=== PATIENT | female | born 1960 | race Caucasian/White ===

== ENCOUNTER 2019-08-22 14:28 | Outpatient (CLI) | payer OTHER, SELFPAY ==
--- NOTE | ~2019-08-22 | MM_ITS ---
EXAMINATION: MM screening alice BI w tsering HISTORY: Screening mammogram TECHNIQUE: Craniocaudal and mediolateral oblique 3-D tomosynthesis images were obtained and synthetic 2-D images were generated. CAD analysis was submitted and interpreted. COMPARISON: No prior mammogram is available for comparison at this institution. BREAST PARENCHYMAL COMPOSITION: There are scattered areas of fibroglandular density. FINDINGS: The right breast is stable without evidence for malignancy. There is focal asymmetry superi mady in the left breast on MLO view. IMPRESSION: 1. Focal left breast asymmetry superiorly seen on MLO view. 2. Additional mammographic views and possible breast ultrasound are recommended. BI-RADS Category 0: Incomplete: Needs additional imaging evaluation. Reviewed, dictated and finalized at location A. 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 Focal left breast asymmetry superiorly seen on MLO view. 2. Additional mammographic views and possible breast ultrasound are recommended . BI-RADS Category 0: Incomplete: Needs additional imaging evaluation.
== END 2019-08-22 14:29 | disposition home or self-care (01) ==
LOC: ANHIMG 14:31
PROVIDERS: PCP Family Medicine; Visit Provider Obstetrics & Gynecology
DX: Z12.31 Encounter for screening mammogram for malignant neoplasm of breast (principal); R92.8 Other abnormal and inconclusive findings on diagnostic imaging of breast
CPT/HCPCS: 77063; 77067

== ENCOUNTER 2019-10-12 12:20 | Outpatient (CLI) | payer OTHER, SELFPAY ==
--- NOTE | ~2019-10-12 | MM_ITS ---
EXAMINATION: MM diagnostic mammo unilat LT HISTORY: Left breast asymmetry on screening mammogram TECHNIQUE: Additional 3-D tomosynthesis images of the left breast were performed and synthetic 2-D im ages were generated. CAD analysis was submitted and interpreted. COMPARISON: Prior mammograms dating back to 01/24/2013 FINDINGS: With spot compression, the asymmetry in the middle third of the upper outer quadrant of the left breast has a stable appearance when compared to multiple prior examinations. There is no suspic ious mass, calcification, or architectural distortion. IMPRESSION: 1. No mammographic evidence of malignancy. 2. Recommend routine screening mammography in one year. BI-RADS Category 2: Benign finding(s). Reviewed, dictated and finalized at location A.
== END 2019-10-12 12:21 | disposition home or self-care (01) ==
LOC: ANHIMG 12:22
PROVIDERS: PCP Family Medicine; Visit Provider Obstetrics & Gynecology
DX: R92.8 Other abnormal and inconclusive findings on diagnostic imaging of breast (principal)
CPT/HCPCS: 77065

== ENCOUNTER 2020-04-08 17:48 | Outpatient (CLI) | payer OTHER, SELFPAY ==
--- NOTE | ~2020-04-08 | XR_ITS ---
EXAMINATION: XR chest 2V EXAM DATE: 04/08/2020 18:08 INDICATION: Left-sided chest pain. TECHNIQUE: Frontal and lateral projections of the chest obtained and reviewed. Comparison is made to prior examination from Comparison is made to prior examination from 04/09/2004. . FINDINGS: There is moderate hyperinflation. The lungs are clear. There are no pleural effusions. Th e cardiomediastinal silhouette is within normal limits. There is no pneumothorax suspected. The bon es and soft tissues are unremarkable. IMPRESSION: 1. No acute cardiopulmonary findings. 2. Hyperinflation. Reviewed, dictated and finalized at location A.
== END 2020-04-08 17:49 | disposition home or self-care (01) ==
PROVIDERS: PCP Family Medicine; Visit Provider Physician Assistant
DX: R07.89 Other chest pain (principal)
CPT/HCPCS: 71046

== ENCOUNTER 2020-05-11 11:15 | Outpatient (CLI) | payer OTHER, SELFPAY ==
--- NOTE | ~2020-05-11 | CT_ITS ---
EXAMINATION: CT chest wo con EXAM DATE: 05/11/2020 11:53 INDICATION: R07.89 - Other chest pain . TECHNIQUE: Spiral CT of the chest without contrast. Axial, coronal and sagittal images were reviewe d. Coronal maximum intensity pixel images of chest reviewed. The dose-length product (DLP) for this examination was 134.08 mGy-cm. The exposure was tailored according to patient size (auto mA exposur e control), and iterative reconstruction (ASIR) was used as additional dose reduction technique. Ravi elation is made to chest x-ray 04/08/2020. FINDINGS: Several lung calcified granulomata. Mild to moderate hyperinflation. There are no pleural or pericardial effusions. Tracheobronchial tree is patent. There is no mediastinal, hilar or axi llary lymphadenopathy. There is no pneumothorax. Heart normal in size. No evidence of coronary arterial calcification. There is a right liver lobe cyst measuring 1.5 cm. There is thoracic spondy losis without osteoblastic or osteolytic lesions identified. IMPRESSION: 1. Mild to moderate hyperinflation. 2. Granulomata. Reviewed, dictated and finalized at location A. 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
== END 2020-05-11 11:16 | disposition home or self-care (01) ==
LOC: ANHIMG 11:16
PROVIDERS: PCP Family Medicine; Visit Provider Family Medicine
DX: R07.89 Other chest pain (principal); R91.8 Other nonspecific abnormal finding of lung field
CPT/HCPCS: 71250

== ENCOUNTER 2020-06-20 09:29 | Outpatient (CLI) | payer OTHER, SELFPAY ==
--- NOTE | 2020-06-24 12:39 | WPDPFTINT ---
PFT Interpretation Full pulmonary function testing 06/20/2020. 1. Flows and volumes both appear greater than predicted normal 2. Diffusing appears capacity appears normal. 3. Post-bronchodilator testing was not obtained given the normalcy of this testing. Impression -normal full PFTs. Bridger Pinto MD MSc FACP FCCP
== END 2020-06-20 09:30 | disposition home or self-care (01) ==
LOC: ANHPFT 09:30
PROVIDERS: PCP Family Medicine; Visit Provider Family Medicine
DX: R09.89 Other specified symptoms and signs involving the circulatory and respiratory systems (principal)
CPT/HCPCS: 94375; 94726; 94729

== ENCOUNTER 2020-09-27 14:43 | Outpatient (CLI) | payer OTHER, SELFPAY ==
--- NOTE | ~2020-09-27 | MM_ITS ---
EXAMINATION: MM screening [facility] BI w tsering HISTORY: Screening mammogram TECHNIQUE: Craniocaudal and mediolateral oblique 3-D tomosynthesis images were obtained and synthetic 2-D images were generated. CAD analysis was submitted and interpreted. COMPARISON: 10/12/2019, 08/22/2019, 08/19/2018, 07/23/2017, 06/25/2016 BREAST PARENCHYMAL COMPOSITION: There are scattered areas of fibroglandular density. FINDINGS: There is no evidence of suspicious mass, calcification, or architectural distortion to sugg est malignancy in either breast. There has been no suspicious interval change. IMPRESSION: 1. No mammographic evidence of malignancy. 2. Recommend routine screening mammography in one year. BI-RADS Category 1: Negative Reviewed, dictated and finalized at location A.
== END 2020-09-27 14:44 | disposition home or self-care (01) ==
LOC: ANHIMG 14:45
PROVIDERS: PCP Family Medicine; Visit Provider Obstetrics & Gynecology
DX: Z12.31 Encounter for screening mammogram for malignant neoplasm of breast (principal)
CPT/HCPCS: 77063; 77067

== ENCOUNTER 2021-04-10 10:15 | Outpatient (RCR) | payer OTHER, SELFPAY ==
--- NOTE | 2021-01-24 12:51 | PTOPEVAL ---
Thank you for referring Dallin Hurtado to [facility].? The patient is scheduled to be seen for therapy?1-2 x/week for 5 weeks. Please review, sign, date and return this plan of care RAUL. I agree with and certify that the following plan of care is medically necessary. 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 she does have to lift the kids for treatment or leans forward to preform treatment. Subjective Information she has received chiropractor Query Text:As Reported By Patient/ and massage treatment for her Family neck. The massage does improve her tightness and pain. She was significantly limited with neck motion, but has improved recently. She has been limited by prolonged forward head position with reading. She is proping the object up with pillows with reading. Denies any numbness or tingling into UE's. [place] from scapular region to post head region. She has been having a progression into her back with pain. Pain Assessment Lower Back Reported Pain Level 5 Pain Description Aching,Tightness Pain Frequency Acute Lowest Pain Intensity 5 Greatest Pain Intensity 5 Pain Aggravating Factors Bending,Prolonged Position Posterior Neck Reported Pain Level 5 Pain Description Aching,Shooting,Tightness Pain Frequency Acute Lowest Pain Intensity 5 Greatest Pain Intensity 6 Pain Aggravating Factors Sitting,Other Pain Aggravating Factors Other Pain Aggravating Factors head movement Cervical and Lumbar ROM Cervical ROM Cervical Flexion (0-60) 70:Active in Degrees Cervical Extension (0-70) 50:Active in Degrees Cervical Lateral Flexion Right (0-50) 30:Active in Degrees Cervical Lateral Flexion Left (0-50) 30:Active in Degrees Cervical Rotation Right (0-90) 55:Active in Degrees Cervical Rotation Left (
--- NOTE | 2021-02-27 14:34 | PTOPEVAL ---
Physical therapy progress note Thank you for referring Dallin Hurtado to [facility].? Pt has attended 9 therapy visits to address neck pain. She demonstrates improved neck motion, strength, and pain with daily task. She has achieved 6 of her goals at this time. The patient is scheduled to be seen for therapy? 1 x/week for 4 weeks. Please review, sign, date and return this plan of care RAUL. I agree with and certify that the following plan of care is medically necessary. 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 She does have to lift the kids for treatment or leans forward to preform treatment. She has received chiropractor treatment for years to maintain neck and massage treatment for her neck for 2-3 treatments before starting PT. Subjective Information She reports improved neck and Query Text:As Reported By Patient/ back pain. She does not feel Family the pain stops her it is just always uncomfortable. She is more aware of her posture. She does report improved neck motion. She has improved head position with use of pillows for reading, but not having increased pain. Pain Assessment Pain Scale Used Numeric (1 - 10) Self Report Pain Assessment Lower Back Reported Pain Level 3 Lowest Pain Intensity 2 Greatest Pain Intensity 5 Cervical and Lumbar ROM Cervical ROM Cervical Flexion (0-60) 70:Active in Degrees Cervical Extension (0-70) 65:Active in Degrees Cervical Lateral Flexion Right (0-50) 38:Active in Degrees Cervical Lateral Flexion Left (0-50) 38:Active in Degrees Cervical Rotation Right (0-90) 58:Active in Degrees Cervical Rotation Left (0-90) 58Active in Degrees Cervical ROM Comments pain with ext and rotation Cervical and Lumbar Muscle Testing Cervical Muscle Testing Cervical Flexion 5 Normal Cervical Extension 5 Normal Cervical Lateral Flexion Right 5 Normal Cervical Lateral Flexion Left 5 Normal Deep Cervical Flexion deep neck nods for 10 sec but
--- NOTE | 2021-04-14 07:33 | PCPTNOTE ---
Admitting Provider: Attending Provider: PHYSICIAN NOT ON STAFF Patient:Dallin Hurtado Date of :1960 Physical Therapy Discharge Summary Patient has received 14 therapy visits since 01/24/21 to address neck pain and limitations. As a result of skilled therapy services she demonstrates improved pain, neck motion, muscle tension and tolerance with daily task. She has been instructed in a HEP and demonstrates indep. She has reached maximal potential with skilled therapy services at this time. The goals have been partially met. Thank you for referring this patient to [facility]. Please review, sign, date and return this discharge summary RAUL. I have been updated about the patient's current status and I agree with discharge from the above service at this time. Referring Physician Date
== END 2021-04-14 08:14 | disposition home or self-care (01) ==
LOC: ANHPT 10:15
PROVIDERS: PCP Family Medicine
DX: M50.30 Other cervical disc degeneration, unspecified cervical region (principal)
CPT/HCPCS: 97014; 97110; 97140; 97162; G0283

== ENCOUNTER 2021-10-24 08:00 | Outpatient (CLI) | payer OTHER, SELFPAY ==
--- NOTE | ~2021-10-24 | MM_ITS ---
EXAMINATION: MM screening alice BI w tsering HISTORY: Screening TECHNIQUE: Craniocaudal and mediolateral oblique 3-D tomosynthesis images were obtained and synthetic 2-D images were generated. CAD analysis was submitted and interpreted. COMPARISON: Comparison to multiple prior studies sequentially, with oldest reviewed study dated 07/23. BREAST PARENCHYMAL COMPOSITION: There are scattered areas of fibroglandular density. FINDINGS: There is no evidence of suspicious mass, calcification, or architectural distortion to sugg est malignancy in either breast. There has been no suspicious interval change. IMPRESSION: 1. No mammographic evidence of malignancy. 2. Recommend routine screening mammography in one year. BI-RADS Category 1: Negative Reviewed, dictated and finalized at location A.
== END 2021-10-24 08:01 | disposition home or self-care (01) ==
LOC: ANHIMG 08:01
PROVIDERS: PCP Family Medicine; Visit Provider Obstetrics & Gynecology
DX: Z12.31 Encounter for screening mammogram for malignant neoplasm of breast (principal)
CPT/HCPCS: 77063; 77067

== ENCOUNTER 2022-01-02 00:52 | Day surgery (SDC) | payer OTHER, SELFPAY ==
[2021-12-19 13:59] VITALS: BMI 24.2
--- NOTE | 2022-01-01 13:57 | PM.HPGS ---
History of Present Illness History of Present Illness Consent: Risks, benefits, and alternatives have been discussed and questions answered. Patient agrees to proceed with procedure. Chief complaint: neoplasm screening Narrative: Dallin Hurtado is a 61 year old female referred for colon cancer screening. Review of Systems Review of Systems: All systems reviewed & are unremarkable except as noted in HPI and below PMFSH Past Medical History Medical History Skin cancer Surgical History Surgical History History of section [place] teeth removed Family History Family History Sibling Diabetes mellitus Mother Hypertension Family history of malignant neoplasm of cervix Family history of malignant neoplasm of ovary Father Hypertension Family history of coronary artery disease Grandparent Hypertension Family history of coronary artery disease Other Family history of cardiovascular disease Social History Social History Second hand tobacco smoke exposure: No Alcohol intake: current Drinks per week: 3 Living arrangements: with family Spiritual care concerns: No Meds Home Medications and Allergies Home Medications Medication Instructions Recorded Confirmed Type cholecalciferol (vitamin D3) 125 5,000 unit PO DAILY 06/06/19 01/02/22 History mcg (5,000 unit) capsule estradiol 2 mg tablet 2 mg PO DAILY 06/06/19 01/02/22 History progesterone micronized 200 mg 200 mg PO DAILY 06/06/19 01/02/22 History capsule testosterone 10 mg/0.5 1 pump transdermal QAM 06/06/19 01/02/22 History gram/actuation transdermal gel pump melatonin 3 mg capsule 5 mg PO HS 07/10/21 01/02/22 History thyroid (pork) 15 mg tablet 90 mg PO DAILY 07/10/21 01/02/22 History ([place] Thyroid) Allergies Allergy/AdvReac Type Severity Reaction Status Date / Time Sulfa (Sulfonamide Allergy Unknown Skin Verified 01/02/22 06:19 Antibiotics) Reaction Exam Const: General: alert Orientation/consciousness: patient oriented x3 Resp: Auscultation: clear to auscultation bilaterally Cardio: Rhythm: regular rhythm GI: GI Palp: Yes Soft to palpation and No Tenderness to palpation present (GI) Neuro: General: patient oriented x3 Assessment and Plan Assessment and plan (1) Colon cancer screening: Code(s): Z12.11 - Encounter for screening for malignant neoplasm of colon Status: Acute Assessment and Plan: Colonoscopy with possible biopsy or polypectomy or cautery or injection of substances.
[2022-01-02 06:10] VITALS: BP 102/59; PULSE 64; RESP 16; TEMP 36.2; O2SAT 100; BMI 23.6
[2022-01-02] MEDS: LACTATED RINGERS 1,000 ML 150 ML IV CONT (06:30)
--- NOTE | 2022-01-02 07:24 | P.PNAN_ITS ---
Anes - Initial Pre Proc Eval Procedure: Operation Date: 01/02/22 07:30 Proposed Procedures p Screening Colonoscopy - Diego Parish MD Date/Time: 01/02/22 07:24 Surgeon: Diego Parish MD Pre Op Diagnosis: neoplasm screening Patient Data Age: 61 Gender: F Height: 1.6 m Weight: 60.5 kg Last Vital Signs Temp 97.2 F L 01/02/22 06:10 Pulse 64 01/02/22 06:10 Resp 16 01/02/22 06:10 BP 102/59 L 01/02/22 06:10 Pulse Ox 100 01/02/22 06:10 O2 Del Method Room Air 01/02/22 06:10 Allergies Allergy/AdvReac Type Severity Reaction Status Date / Time Sulfa (Sulfonamide Allergy Unknown Skin Verified 01/02/22 06:19 Antibiotics) Reaction Home Medications Medication Instructions Recorded Confirmed Type cholecalciferol (vitamin D3) 125 5,000 unit PO DAILY 06/06/19 01/02/22 History mcg (5,000 unit) capsule estradiol 2 mg tablet 2 mg PO DAILY 06/06/19 01/02/22 History progesterone micronized 200 mg 200 mg PO DAILY 06/06/19 01/02/22 History capsule testosterone 10 mg/0.5 1 pump transdermal QAM 06/06/19 01/02/22 History gram/actuation transdermal gel pump melatonin 3 mg capsule 5 mg PO HS 07/10/21 01/02/22 History thyroid (pork) 15 mg tablet 90 mg PO DAILY 07/10/21 01/02/22 History ([place] Thyroid) Patient hx anesthesia problems: none Family hx anesthesia problems: none Results Review: All pre-operative results and documents have been reviewed as part of the pre- operative evaluation. [facility] Past Medical History Medical History Skin cancer Surgical History Surgical History History of section [place] teeth removed Family History Family History Sibling Diabetes mellitus Mother Hypertension Family history of malignant neoplasm of cervix Family history of malignant neoplasm of ovary Father Hypertension Family history of coronary artery disease Grandparent Hypertension Family history of coronary artery disease Other Family history of cardiovascular disease Social History Social History Second hand tobacco smoke exposure: No Alcohol intake: current Drinks per week: 3 Living arrangements: with family Spiritual care concerns: No Anes - Eval Final PreProcedure Day of Procedure 01/02/22 07:24 Patient weight: normal Heart: regular rate and rhythm Lungs: clear to auscultation Airway: Mallampati scale class II Neurological: alert and oriented Last oral intake: >/= 8 hours ASA classification: II Emergent: no Anesthetic plan: proceed Anesthesia type and monitoring: general GIVS and standard monitoring Results Review: All pre-operative results and documents have been reviewed as part of the pre-operative evaluation. Informed Consent: The patient's anesthetic plan and its attendant risks and benefits were discussed with the patient/family/POA. Questions were solicited and answers provided to the satisfaction of the patient/family/POA.
[2022-01-02 07:47] VITALS: BP 99/56; PULSE 74; RESP 16; O2SAT 100
[2022-01-02 07:57] VITALS: BP 109/63; PULSE 72; RESP 17; O2SAT 100
[2022-01-02 08:07] VITALS: BP 110/76; PULSE 68; RESP 18; O2SAT 100
== END 2022-01-02 08:15 | disposition home or self-care (01) ==
PROVIDERS: PCP Family Medicine; Visit Provider Internal Medicine Gastroenterology
PROC: 0DJD8ZZ Inspection of Lower Intestinal Tract, Via Natural or Artificial Opening Endoscopic (ICD-10-PCS; CPT 45378; principal; 2022-01-02 07:30)
DX: Z12.11 Encounter for screening for malignant neoplasm of colon (principal)
CPT/HCPCS: 45378; J2001; J2704; J7120

== ENCOUNTER 2022-02-14 13:53 | Outpatient (CLI) | payer OTHER, SELFPAY ==
--- NOTE | ~2022-02-14 | XR_ITS ---
EXAM: XR hip BI wo pelvis DATE: 02/14/2022 14:10 HISTORY: M25.551 -CINDY HIP PAIN X 6MOS. RT WORSE, NKI . COMPARISON: 11/30/2006. FINDINGS: Normal mineralization. No fracture or dislocation. No lytic or blastic lesion. Mild superi or hip joint space narrowing bilaterally, slightly more progressive on the right. Osteitis pubis. No erosion or periosteal change. Soft tissues within normal limits. IMPRESSION: Osteitis pubis. Mild bilateral hip osteoarthritis. Reviewed, dictated and finalized at location K.
== END 2022-02-14 13:54 | disposition home or self-care (01) ==
LOC: ANHIMG 13:56
PROVIDERS: PCP Family Medicine; Visit Provider Family Medicine
DX: M16.0 Bilateral primary osteoarthritis of hip (principal); M86.8X5 Other osteomyelitis, thigh
CPT/HCPCS: 73521

== ENCOUNTER 2022-02-24 06:56 | Outpatient (CLI) | payer OTHER, SELFPAY ==
[2022-02-24 07:11] LABS: Basophils Absolute Auto 0.1 K/mm3 (0.0-0.1); Basophils Percent Auto 1.1 % (0.2-1.2); Eosinophils Absolute Auto 0.2 K/mm3 (0-0.3); Eosinophils Percent Auto 3.7 % (0-4.4); Hematocrit 40.5 % (37.0-47.0); Hemoglobin 13.6 g/dL (12.0-15.0); Immature Granulocyte Absolute 0.01 K/mm3 (0.00-0.031); Immature Granulocyte Percent A 0.2 % (0-0.5); Lymphocytes Absolute Auto 3.14 K/mm3 (0.9-3.2); Lymphocytes Percent Auto 57.5 % (18.3-44.2); Mean Corpuscular HGB Conc 33.6 g/dl (32-36); Mean Corpuscular Hemoglobin 31.8 pg (26-34); Mean Corpuscular Volume 94.6 fl (80-100); Mean Platelet Volume 9.8 fl (7.4-10.4); Monocytes Absolute Auto 0.4 K/mm3 (0.1-0.6); Monocytes Percent Auto 7.9 % (2.6-8.5); Neutrophils Absolute Auto 1.6 K/mm3 (1.3-6.7); Neutrophils Percent Auto 29.6 % (45.5-73.1); Platelet Count Result 271 k/mm3 (150-375); Red Blood Count 4.28 M/mm3 (4.2-5.4); Red Cell Distribution Width 12.5 % (11.5-14.5); White Blood Count 5.5 K/mm3 (4.5-10.0)
[2022-02-24 07:25] LABS: Alanine Aminotransferase 21 U/L (6-35); Albumin Level 4.3 g/dL (3.5-5.1); Alkaline Phosphatase 53 U/L (38-126); Anion Gap 10 mmol/L (8-16); Aspartate Amino Transferase 36 U/L (14-36); Bilirubin,Total 0.4 mg/dL (0.2-1.3); Blood Urea Nitrogen 18 mg/dL (7-17); Carbon Dioxide 24 mmol/L (22-30); Chloride 103 mmol/L (98-107); Cholesterol 229 mg/dL (0-200); Estimated Glomerular Filt Rate > 60; Glucose 98 mg/dL (65-110); HDL Direct 85 mg/dL; Potassium 4.1 mmol/L (3.4-5.0); Sodium 137 mmol/L (137-145); Triglycerides 91 mg/dL (<150)
[2022-02-24 07:36] LABS: LDL Cholesterol Direct 100 mg/dL
== END 2022-02-24 06:57 | disposition home or self-care (01) ==
LOC: ANHLAB 06:57
PROVIDERS: PCP Family Medicine; Visit Provider Family Medicine
DX: R53.83 Other fatigue (principal); E78.5 Hyperlipidemia, unspecified; R73.9 Hyperglycemia, unspecified
CPT/HCPCS: 36415; 80053; 80061; 83036; 85025

== ENCOUNTER 2022-10-01 16:07 | Outpatient (CLI) | payer OTHER, SELFPAY ==
--- NOTE | ~2022-10-01 | US_ITS ---
EXAMINATION: US thyroid DATE: 10/01/2022 16:41 INDICATION: Thyroid nodule. TECHNIQUE: Multiple ultrasound images of the thyroid were obtained. COMPARISON: None. FINDINGS: The right thyroid lobe measures 4.2 x 1.0 x 1.1 cm. The left thyroid lobe measures 4.1 x 1.2 x 1.5 c m. In the left thyroid lobe, there is a 10 mm solid, hypoechoic, wider than tall nodule with smooth margin and punctate echogenic foci (TI-RADS TR5). There are multiple subcentimeter nodules in the thy roid. IMPRESSION: 1. 10 mm left thyroid nodule. Ultrasound-guided fine-needle aspiration is recommended. Reviewed, dictated and finalized at location A. IMPRESSION: 1. 10 mm left thyroid nodule. Ultrasound-guided fine-needle aspiration is recom mended.
== END 2022-10-01 16:08 | disposition home or self-care (01) ==
LOC: ANHIMG 16:08
PROVIDERS: PCP Family Medicine; Visit Provider Family Medicine
DX: R93.89 Abnormal findings on diagnostic imaging of other specified body structures (principal); E04.1 Nontoxic single thyroid nodule
CPT/HCPCS: 76536

== ENCOUNTER 2022-10-15 12:39 | Outpatient (CLI) | payer OTHER, SELFPAY ==
--- NOTE | ~2022-10-15 | US_ITS ---
EXAMINATION: US FNA w image guidance DATE: 10/15/2022 13:51 INDICATION: Left thyroid nodule TECHNIQUE: A time-out was performed to verify the patient's name, date of , and procedure to be performed . The procedure and its benefits and risks were discussed with the patient. Risks specifically discus sed included bleeding and infection. The patient understood the risks and agreed to proceed. The neck was prepped and draped in the usual sterile manner. 3 mL 1% lidocaine was used for local anesthesia . 6 passes were made with a 25G needle into the lesion. Appropriate needle location was documented with continuous sonographic guidance. A sterile bandage was applied. There were no immediate compli cations. FINDINGS: On real-time imaging of the left thyroid lobe prior to the biopsy the nodule of concern as previously measured appeared to represent a portion of a larger nodule measuring 2.0 x 1.0 x 0.9 cm. Ultrasound images demonstrate the biopsy needle advanced into both the portion of the nodule as previous identi fied as well as the more caudal hypoechoic regions of the nodule. IMPRESSION: 1. Successful ultrasound-guided fine needle aspiration of a 2.0 cm TI RADS 5 nodule in the mid to in ferior left thyroid. Reviewed, dictated and finalized at location A. IMPRESSION: 1. Successful ultrasound-guided fine needle aspiration of a 2.0 cm TI RADS 5 n odule in the mid to inferior left thyroid.
== END 2022-10-15 12:40 | disposition home or self-care (01) ==
PROVIDERS: PCP Family Medicine; Visit Provider Family Medicine
DX: E04.1 Nontoxic single thyroid nodule (principal)
CPT/HCPCS: 10005; 88173; 88305

== ENCOUNTER 2022-10-30 15:15 | Outpatient (CLI) | payer OTHER, SELFPAY ==
--- NOTE | ~2022-10-30 | MM_ITS ---
EXAMINATION: MM screening [facility] [place] HISTORY: Screening mammogram TECHNIQUE: Craniocaudal and mediolateral oblique 3-D tomosynthesis images were obtained and synthetic 2-D images were generated. CAD analysis was submitted and interpreted. COMPARISON: 10/24/2021, 09/27/2020, 10/12/2019 BREAST PARENCHYMAL COMPOSITION: The breasts are heterogeneously dense, which may obscure small masses . FINDINGS: RIGHT BREAST: An asymmetry is present in the posterior third of the slightly upper breast on the medi olateral oblique view. LEFT BREAST: No suspicious mass, calcification, or architectural distortion are identified to suggest malignancy. There has been no suspicious interval change. IMPRESSION: 1. Right breast asymmetry. 2. Additional mammographic views and possible breast ultrasound are recommended. BI-RADS Category 0: Incomplete: Needs additional imaging evaluation. Reviewed, dictated and finalized at location A. IMPRESSION: 1. Right breast asymmetry. 2. Additional mammographic views and possible breast ultrasound are recommended . BI-RADS Category 0: Incomplete: Needs additional imaging evaluation.
== END 2022-10-30 15:16 | disposition home or self-care (01) ==
LOC: ANHIMG 15:16
PROVIDERS: PCP Family Medicine; Visit Provider Obstetrics & Gynecology
DX: Z12.31 Encounter for screening mammogram for malignant neoplasm of breast (principal); R92.8 Other abnormal and inconclusive findings on diagnostic imaging of breast
CPT/HCPCS: 77063; 77067

== ENCOUNTER 2022-11-02 12:39 | Outpatient (CLI) | payer OTHER, SELFPAY ==
--- NOTE | ~2022-11-02 | US_ITS ---
EXAMINATION: US FNA w image guidance DATE: 11/02/2022 13:52 INDICATION: Left thyroid nodule. TECHNIQUE: The procedure and its benefits and risks were discussed with the patient. Risks specifically discusse d included bleeding. The patient verbalized understanding of the risks and agreed to proceed. The nec k was prepped and draped in the usual sterile manner. 1% lidocaine was used for local anesthesia. 6 passes were made with a 25G needle into the lesion under ultrasound guidance. There were no immedia te complications. FINDINGS: Grayscale ultrasound images demonstrate needles advanced into a 1.2 cm nodule in left thyroid lobe fo r biopsy. IMPRESSION: 1. Ultrasound-guided fine needle aspiration of a left thyroid nodule. Reviewed, dictated and finalized at location A.
== END 2022-11-02 12:40 | disposition home or self-care (01) ==
PROVIDERS: PCP Family Medicine; Visit Provider Family Medicine
DX: E04.1 Nontoxic single thyroid nodule (principal)
CPT/HCPCS: 10005; 88173; 88305

== ENCOUNTER 2022-11-20 12:56 | Outpatient (CLI) | payer OTHER, SELFPAY ==
--- NOTE | ~2022-11-20 | MMUS_ITS ---
EXAMINATION: MM diagnostic alice RT w tsering, US breast RT limited HISTORY: Right breast asymmetry on screening mammogram TECHNIQUE: Additional 3-D tomosynthesis images of the right breast were performed and synthetic 2-D i mages were generated. CAD analysis was submitted and interpreted. High resolution limited right breas t ultrasound was performed. COMPARISON: 10/30/2022, 10/24/2021, 09/27/2020, 08/22/2019 FINDINGS: MAMMOGRAPHIC FINDINGS: There is a return to baseline fibroglandular appearance with spot compression of the right breast in the area questioned on screening mammogram. ULTRASOUND: There is no evidence of focal abnormal solid or cystic mass in the vicinity of the mammographic findi ng in question. IMPRESSION: 1. No mammographic or sonographic evidence of malignancy. 2. Recommend routine screening mammography in one year. BI-RADS Category 1: Negative Reviewed, dictated and finalized at location A. IMPRESSION: 1. No mammographic or sonographic evidence of malignancy. 2. Recommend routine screening mammography in one year. BI-RADS Category 1: Negative
== END 2022-11-20 12:57 | disposition home or self-care (01) ==
PROVIDERS: PCP Family Medicine; Visit Provider Obstetrics & Gynecology
DX: R92.8 Other abnormal and inconclusive findings on diagnostic imaging of breast (principal)
CPT/HCPCS: 76642; 77061; 77065; G0279

== ENCOUNTER 2023-10-25 12:42 | Outpatient (CLI) | payer BC, SELFPAY ==
--- NOTE | ~2023-10-25 | US_ITS ---
Pelvic ultrasound. Clinical History: Abnormal uterine bleeding Technique: Realtime transabdominal and transvaginal scanning of the pelvis was performed. Color flow Doppler and Doppler spectral analysis were performed. Findings: The uterus is anteverted. The endometrial stripe this somewhat ill-defined and, measuring up to approximately 5 mm on transvaginal imaging. Fibroid measures 2.5 cm in the anterior wall, possi yousuf partially submucosal. The right ovary measures 2.0 x 1.5 x 1.3 cm. No significant right ovarian or adnexal mass is seen. The left ovary measures 1.9 x 1.1 x 1.7 cm. No significant left ovarian or adnexal mass is seen. There is no evidence of free fluid in the cul de sac. Impression: 2.5 cm intramural or partially submucosal fibroid anteriorly. Reviewed, dictated and finalized at [facility]. Impression: 2.5 cm intramural or partially submucosal fibroid anteriorly.
== END 2023-10-25 12:43 ==
PROVIDERS: PCP Obstetrics & Gynecology; Visit Provider Obstetrics & Gynecology
DX: N93.9 Abnormal uterine and vaginal bleeding, unspecified (principal)
CPT/HCPCS: 76830; 76856

== ENCOUNTER 2023-11-30 16:41 | Outpatient (CLI) | payer OTHER, SELFPAY ==
--- NOTE | ~2023-11-30 | MM_ITS ---
EXAMINATION: MM screening alice BI w tsering HISTORY: Screening TECHNIQUE: Craniocaudal and mediolateral oblique 3-D tomosynthesis images were obtained and synthetic 2-D images were generated. CAD analysis was submitted and interpreted. COMPARISON: Comparison to multiple prior studies sequentially, with oldest reviewed study dated 08/22. BREAST PARENCHYMAL COMPOSITION: Not dense: There are scattered areas of fibroglandular density. FINDINGS: There is no evidence of suspicious mass, calcification, or architectural distortion to sugg est malignancy in either breast. There has been no suspicious interval change. IMPRESSION: 1. No mammographic evidence of malignancy. 2. Recommend routine screening mammography in one year. BI-RADS Category 1: Negative Reviewed, dictated and finalized at location B.
== END 2023-11-30 16:42 | disposition home or self-care (01) ==
PROVIDERS: PCP Obstetrics & Gynecology; Visit Provider Obstetrics & Gynecology
DX: Z12.31 Encounter for screening mammogram for malignant neoplasm of breast (principal)
CPT/HCPCS: 77063; 77067

== ENCOUNTER 2024-02-29 14:53 | Outpatient (CLI) | payer OTHER, SELFPAY ==
--- NOTE | ~2024-02-29 | DEXA_ITS ---
Bone Density Report Name: BENJAMÍN SAMUEL Age: 63 Sex: Female Ethnicity: White Date of : 1960 Indication: postmenopausal; screening for osteoporosis; cancer; Referring Provider: BENJAMÍN KHALIL Study: Bone densitometry was performed. Exam Date: February 29, 2024 Accession number: [id number] Bone Density: Region BMD T-score Z-score Classification AP Spine(L1-L4) 1.100 0.5 2.2 Normal Femoral Neck (Left) 0.810 -0.3 1.1 Normal Total Hip (Left) 0.916 -0.2 1.0 Normal Femoral Neck (Right) 0.851 0.0 1.5 Normal Total Hip (Right) 0.957 0.1 1.3 Normal Total Hip Mean 0.937 -0.1 1.2 Normal World Health Organization criteria for BMD impression classify patients as: Normal (T-score at or above -1.0), Osteopenia (T-score between -1.0 and -2.5), or Osteoporosis (T-score at or below -2.5). 10-year Fracture Risk: FRAX not reported because: All T-scores for Spine Total, Hip Total, Femoral Neck at or above -1.0 Previous Exams: Region Exam Age BMD T-score BMD Change BMD Change Date g/cm2 vs Baseline vs Previous AP Spine (L1-L4) 02/29/2024 63 1.100 0.5 0.084 (8.2%)* 0.063 (6.0%)* 08/19/2018 58 1.038 -0.1 0.021 (2.1%) 0.021 (2.1%) 05/31/2015 55 1.017 -0.3 Total Hip(Left) 02/29/2024 63 0.916 -0.2 0.067 (7.8%)* 0.048 (5.6%)* 08/19/2018 58 0.868 -0.6 0.018 (2.2%) 0.018 (2.2%) 05/31/2015 55 0.850 -0.8 Total Hip(Right) 02/29/2024 63 0.957 0.1 0.067 (7.5%)* -0.010 (-1.0%) 08/19/2018 58 0.968 0.2 0.077 (8.7%)* 0.077 (8.7%)* 05/31/2015 55 0.890 -0.4 *Denotes significance at 95% confidence level, LSC for AP Spine = 0.022 g/cm2, LSC for Total Hip = 0.027 g/cm2 Clinical Information Provided by Patient: Has used the following medications: Vitamin D, Calcium Has the following medical conditions: Cancer Patient maximum height was 63 Menopause Age: 53 Drinks caffeinated beverages Onset of menses at age 12 Number of children 2 Impression: The patient has normal bone mass. No significant bone loss was observed. Discussion: BONE DENSITY IS ABOVE THE MINIMUM DESIRABLE LEVEL AT ALL SKELETAL SITES TESTED. This patient?s bone mineral density is above the minimum desirable level (T-score -1.0 or better) at all sites measured. The patient should follow a healthful lifestyle (good nutrition with adequate calcium and vitamin D, and appropriate weight-bearing exercise). Follow-Up: Consider
== END 2024-02-29 14:54 | disposition home or self-care (01) ==
LOC: ANHIMG 14:53
PROVIDERS: PCP Obstetrics & Gynecology; Visit Provider Obstetrics & Gynecology
DX: Z13.820 Encounter for screening for osteoporosis (principal); Z78.0 Asymptomatic menopausal state
CPT/HCPCS: 77080

== ENCOUNTER 2025-01-08 14:19 | Outpatient (CLI) | payer BC, SELFPAY ==
--- NOTE | ~2025-01-08 | MM_ITS ---
EXAMINATION: MM screening alice BI w tsering HISTORY: Screening TECHNIQUE: Craniocaudal and mediolateral oblique 3-D tomosynthesis images were obtained and synthetic 2-D images were generated. CAD analysis was submitted and interpreted. COMPARISON: Comparison to multiple prior studies sequentially, with oldest reviewed study dated 10/11. BREAST PARENCHYMAL COMPOSITION: Dense: The breasts are heterogeneously dense, which may obscure small masses FINDINGS: There is no evidence of suspicious mass, calcification, or architectural distortion to sugg est malignancy in either breast. There has been no suspicious interval change. IMPRESSION: 1. No mammographic evidence of malignancy. 2. Recommend routine screening mammography in one year. BI-RADS Category 1: Negative Reviewed, dictated and finalized at location B.
--- OUTSIDE RECORDS SUMMARY | 2025-01-08 14:27 | XMS_ITS | Encounter Summary ---
Author Organization [facility] Address [address] [place] [address] Care Team Providers Care Raw Sampler Name Role Phone Bhaskar Vaughan MD Primary Care Provider [phone] Reason for Visit * Reason Onset Date Comments General 09/23/2018 Encounter Details Date Type Department Care Team (Late st Contact Info) Description 09/23/2018 Telephone [facility] [address] [place], [place] [id number] Tanika Kennedy MD [address] [facility] [address] [place] [id number] General Social History Tobacco Use Types Packs/Day Years Used Date Smoking Tobacco: Never Smokeless Tobacco: Never Alcohol Use Standard Drinks/Week Comments Yes 1.7 (1 standard drink = 0.6 oz p ure alcohol) Comments Unknown Sex and Gender Information Value Date Recorded Sex Assigned at Not on file 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 Was this a typo? Do we need to submit a pre-certification letter? If so, please call insurance with the codes I have listed Below, dx cyst, symptoms tender. Thank you. * Telephone Encounter - Tanika Kennedy MD - 09/27/2018 3:[address] Pat I do not see the cyst history and symptoms documented in your HPI Please call patient to review again and addend your note. You can also let pt know that codes would estimated to be: 08094 - code for excision 31895 - code for repair Thank you. * Telephone Encounter - Katey Monroy - 09/23/2018 1:09 PM CDT Pt called and states that she is to have a cyst removal done with dr kennedy. She spoke with her insurance and they need a pre determination with a diagnosis code and records to support why cyst needs removed and repaired. They do not need a PA documented in this encounter Plan of Treatment Upcoming Encounters Date Type Department Care Team (Late st Contact Info) Description 04/18/2025 12:50 PM CDT Office Visit [facility] - Dermatology [address] [place] [address], [place] [address] Tanika Kennedy MD [address] [place] [address] [address] [place] [address] documented as of this encounter Visit Diagnoses Not on filedocumented in this encounter Care Teams Raw Sampler Relationship Specialty Start Date End Date Bhaskar Vaughan MD [address] [place] [address] PCP - General 09/16/18 documented as of this encounter
--- OUTSIDE RECORDS SUMMARY | 2025-01-08 14:27 | XMS_ITS | Clinical Summary ---
Author Organization [facility] Address [address] [facility] [place] [address] Care Team Providers Care Systems Accountant Name Role Phone Bhaskar Vaughan MD Primary Care Provider [phone] Source Comments [facility],non-owned Affiliates and Associated Physician Practices is amultiple site organization consisting of ambulatory clinics and hospital sitesin [place], [place] and [place]. This disclosure is being madepursuant to the Care Everywhere program and may not contain all information available regarding this patient. Last updated 18.[facility] Allergies Active Allergy Reactions Criticality Noted Date Comments Sulfa Drugs Skin Reactions Medium 06/17/2012 Medications * Be aware that medications may not be up to date on this document. Alwaysverify current medications with the patient. 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 Assessment & Plan (08/07/2020 9:43 AM LOW ALTIT[employer]DE [employer] OFFICER): -benign, reassurance, but painful -plan excision in future, insurance had previously denied due to cosmetic proc -not cosmetic, painful -2 cm in size -retry to get approved 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 ABCDEs of melanoma was explained to the pt, advised pt on consistent sunscreen use (SPF > 30, UVA + UVB). Monthly self-exam, and avoid direct sunlight/tanning. Inflamed seborrheic keratosis 08/07/2020 Assessment & Plan (08/07/2020 9:48 AM LOW [employer]IT[employer] OFFICER): -R cheek - Discussed benign potential - Fully reviewed treatment options with patient including indications, risks, benefits, alternatives to LN2 - pt desires treatment - Cryo x 1 lesion, 6-7 second freeze time x 1 cycle - Wound care reviewed - Post cryo handout given Other melanin hyperpigmentation 05/11/2014 Lentigines 05/11/2014 History of basal cell carcinoma (BCC) 06/18/2012 Assessment & Plan (08/07/2020 9:42 AM LOW [employer]IT[employer] OFFICER): -NER today -continue yearly FBSE Immunizations Immunization Administration Dates Next Due INFLUENZA VACCINE 04/16/2020 Family History Medical History Relation Name Comments None Known Brother Cancer - Skin, Non Melanoma Father None Known Maternal Aunt None Known Maternal Grandfather None Known Maternal Grandmother None Known Maternal Uncle Psoriasis Mother None Known Other None Known Paternal Aunt None Known Paternal Grandfather None Known Paternal Grandmother None Known Paternal Uncle Psoriasis Sister Allergy (Severe) Neg Hx Asthma Neg Hx CVA Neg Hx Cancer - Breast Neg Hx Cancer - Other Neg Hx Cancer - Skin, Melanoma Neg Hx Eczema Neg Hx Hemophilia Neg Hx Rashes/Skin Problems Neg Hx Relation Name Status Comments Brother Father Maternal Aunt Maternal Grandfather Maternal Grandmother Maternal Uncle Mother Other Paternal Aunt Paternal Grandfather Paternal Grandmother Paternal Uncle Sister Social History Tobacco Use Types Packs/Day Years Used Date Smoking Tobacco: Never Smokeless Tobacco: Never Alcohol Use Standard Drinks/Week Comments Yes 1.7 (1 standard drink = 0.6 oz p ure alcohol) Comments Unknown Sex and Gender Information Value Date Recorded Sex Assigned at Not on file 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 Gender Identity Not on file Sexual Orientation Not on file Plan of Treatment Upcoming Encounters Date Type Department Care Team (Late st Contact Info) Description 04/18/2025 12:50 PM CDT Office Visit [facility] - Dermatology [address] [place] [address], [place] [phone] Tanika Kennedy MD [address] [place] [address] [address] [place] [address] Health Maintenance Due Date Last Done Comments COLOGUARD (AGES 45-75) - COL ON CA SCREENING 1960 COLON MONITORING 1960 COLONOSCOPY - COLON CA SCREENING 1960 CT COLONOGRAPHY - COLON CA SCREENING 1960 Colorectal Cancer Screening 1960 FIT - COLON CA SCREENING 1960 FLEX SIG - COLON CA SCREENING 1960 LIPID TESTING 1960 MAMMOGRAM 1960 HIV SCREENING 1975 HEPATITIS C SCREENING 03/09/1978 DTAP/TDAP/TD VACCINES (1 - Tdap) 1979 PAP SMEAR 1981 PNEUMOCOCCAL VACCINE 50+ (1 of 1 - PCV) 2010 ZOSTER VACCINE (1 of 2) 2010 COVID-19 VACCINE ( - 2023-2 5 season) 2024 DEPRESSION SCREENING 06/28/2024 INFLUENZA VACCINE (#1) 2025 04/16/2020 Respiratory Syncytial Virus (RSV) Vaccine Pt: or over 60 yrs (1 - 1-dose 75+ series) 2035 HEPATITIS B VACCINE Aged Out No longe r eligible based on patient's age to complete this topic HIB VACCINE Aged Out No longer eligi ble based on patient's age to complete this topic HPV VACCINE Aged Out No longer eligi ble based on patient's age to complete this topic MENINGOCOCCAL (Group B) VACC INE SHARED DECISION-MAKING Aged Out No longer eligibl e based on patient's age to complete this topic MENINGOCOCCAL GROUPS A/C/Y/W VACCINE Aged Out No longer eligible b ased on patient's age to complete this topic Insurance [facility] Care Teams Systems Accountant Relationship Specialty Start Date End Date Bhaskar Vaughan MD [address] [place] [address] PCP - General 09/16/18
== END 2025-01-08 14:20 | disposition home or self-care (01) ==
LOC: ANHIMG 14:21
PROVIDERS: PCP Family Medicine; Visit Provider Obstetrics & Gynecology
DX: Z12.31 Encounter for screening mammogram for malignant neoplasm of breast (principal)
CPT/HCPCS: 77063; 77067

== ENCOUNTER 2025-04-11 10:13 | Outpatient (CLI) | payer MEDICARE, SELFPAY ==
--- NOTE | ~2025-04-11 | XR_ITS ---
EXAMINATION: XR hip RT min 2V, 04/11/2025 10:20 CDT HISTORY: Lumbago with sciatica, left side, pain x 6 months, no surg, COMPARISON: No comparisons available. Findings: No acute fracture or malalignment. No significant degenerative changes. Soft tissues unremarkable. Impression: No acute fracture or malalignment. Reviewed, dictated and finalized at location P. Impression: No acute fracture or malalignment.
--- NOTE | ~2025-04-11 | XR_ITS ---
XR lumbar spine min 4V Indication: Lumbago with sciatica, left side, pain x 6 months, no surg, Comparison: None Findings: Grade 1 anterolisthesis of L3 on L4 with grade 1 anterolisthesis of L2 on L3, no acute fracture. Mild to moderate loss of disc height throughout Soft tissues unremarkable Impression: No acute abnormality. Reviewed, dictated and finalized at location P. Impression: No acute abnormality.
== END 2025-04-11 10:14 | disposition home or self-care (01) ==
LOC: GOSHIMG 10:14
PROVIDERS: PCP Family Medicine; Visit Provider Family Medicine
DX: M25.551 Pain in right hip (principal); M54.42 Lumbago with sciatica, left side; M54.41 Lumbago with sciatica, right side; G89.29 Other chronic pain
CPT/HCPCS: 72110; 73502